=== PATIENT | female | born 1995 | race African-American/Black ===

== ENCOUNTER 2016-11-13 10:22 | Emergency (ER) | payer MEDICAID, OTHER ==
[~2016-11-13] VITALS: Ht 165.1 cm; Wt 100.0 kg
[2016-11-13 10:24] VITALS: BP 119/59; PULSE 79; RESP 14; TEMP 98.1; O2SAT 97
[2016-11-13 12:23] LABS: BACTERIA, URINE FEW /hpf; BLOOD, URINE NEG (NEG); COMMENT (UR) CULTURE INDICATED; CULTURE IF INDICATED CULTURE INDICATED; GLUCOSE,URINE NEG (NEG); KETONE, URINE NEG (NEG); MUCUS URINE FEW /lpf (OCC); NITRITE,URINE NEG (NEG); PH, URINE 6.5 (5.0-8.5); SQUAMOUS EPITHELIAL CELL URINE 3 /hpf (0-5); URINE COLOR YELLOW (YELLW/STRAW)
--- NOTE | 2016-11-13 13:41 | PD ---
HPI Chief Complaint: Complaint Time Seen by Provider: 13:39 Travel History International Travel<30 days: No Contact w/Intl Traveler<30days: No Traveled to known affect area: No History of Present Illness HPI 21-year-old female presents to the emergency Department with 2 complaints. First complaint is vaginal discharge that is yellowish in color and with a foul odor for a couple months. Denies vaginal pain, itching, irritation. Denies being exposed to STD eyes are STDs. Reports using a condom every time with sexual intercourse. Denies oral contraception. Last menstrual period ended October 23. Denies risk of . Second complaint is urinary frequency, urgency, hesitancy for the last week. Denies hematuria or dysuria. Denies pelvic pain, abdominal pain, nausea, vomiting. Denies fever, chills. Has not taken any medications or tried any treatments to alleviate symptoms. No known relieving or aggravating factors. Does not have a primary care provider. No known allergies. Denies significant past medical history. No other modifying factors or associated signs and symptoms. PFSH Past Medical History Medical History: Denies Significant Hx ?: Not Social History Tobacco Use: No Allergies-Medications (Allergen,Severity, Reaction): Coded Allergies: No Known Allergies (Unverified , 11/13/16) Reported Meds & Prescriptions Reported Meds & Active Scripts Active Keflex (Cephalexin) 500 Mg Cap 500 Mg PO Q12H 7 Days Review of Systems Except as stated in HPI: all other systems reviewed are Neg Physical Exam Narrative GENERAL: Well-nourished, well-developed female patient, in no acute distress; afebrile, nontoxic-appearing SKIN: Warm and dry. HEAD: Atraumatic. Normocephalic. EYES: Pupils equal and round. No scleral icterus. No injection or drainage. ENT: Mucous membranes pink and moist. NECK: Trachea midline. No lymphadenopathy. CARDIOVASCULAR: Regular rate and rhythm. No murmur appreciated. RESPIRATORY: No accessory muscle use. Clear to auscultation. Breath sounds equal bilaterally. GASTROINTESTINAL: Abdomen soft, non-tender, nondistended. Bilateral pelvic region nontender to palpation. Hepatic and splenic margins not palpable. No guarding, rigidity, rebound tenderness. PELVIC: Speculum exam reveals edematous and erythematous cervix with thick, light green , mucopurulent, foul-smelling discharge. Bimanual exam reveals no palpable masses or adnexa tenderness, no uterine tenderness. Negative cervical motion tenderness. MUSCULOSKELETAL: No obvious deformities. No clubbing. No cyanosis. No edema. NEUROLOGICAL: Awake and alert. No obvious cranial nerve deficits. Motor grossly within normal limits. Normal speech. PSYCHIATRIC: Appropriate mood and affect; insight and judgment normal. BACK: No CVA tenderness. Data Data Last Documented VS Vital Signs Date Time Temp Pulse Resp B/P Pulse Ox O2 Delivery O2 Flow Rate FiO2 11/13/16 10:24 98.1 79 14 119/59 97 Room Air Orders Urinalysis - C+S If Indicated (11/13/16 11:06) Ed Urine Pregnancytest Poc (11/13/16 11:06) Urine Culture (11/13/16 11:16) Gc And Chlamydia Pcr (11/13/16 14:49) Wet Prep Profile (11/13/16 14:49) Ceftriaxone Inj (Rocephin Inj) (11/13/16 15:00) Lidocaine 1% Inj (50 Ml) (Xylocaine 1% I (11/13/16 15:00) Ceftriaxone Inj (Rocephin Inj) (11/13/16 15:00) Azithromycin Powd Pack (Zithromax Powd P (11/13/16 15:15) Labs Laboratory Tests Test 11/13/16 11/13/16 11:16 14:45 Urine Color YELLOW Urine Turbidity HAZY Urine pH 6.5 Urine Specific [place] 1.023 Urine Protein 30 mg/dL Urine Glucose (UA) NEG mg/dL Urine Ketones NEG mg/dL Urine Occult Blood NEG Urine Nitrite NEG Urine Bilirubin NEG Urine Urobilinogen LESS THAN 2.0 MG/DL Urine Leukocyte Esterase LARGE Urine RBC 5 /hpf Urine WBC 119 /hpf Urine WBC Clumps RARE Urine Squamous Epithelial 3 /hpf Cells Urine Bacteria FEW /hpf Urine Mucus FEW /lpf Microscopic Urinalysis Comment CULTURE INDICATED Clue Cells (Wet Prep) NONE SEEN Vaginal Trichomonas (Wet Prep) NONE SEEN Vaginal Yeast (Wet Prep) NONE SEEN MDM Medical Decision Making Medical Screen Exam Complete: Yes Emergency Medical Condition: Yes Medical Record Reviewed: Yes Differential Diagnosis Chlamydia, gonorrhea, urinary tract infection, bacterial vaginosis, vaginal yeast Narrative Course 21-year-old female with vaginal and urinary complaint. Denies fever, chills, nausea, vomiting. Afebrile and nontoxic-appearing in the ER. Denies abdominal or pelvic pain. Urine negative. Urinalysis, wet prep, chlamydia, gonorrhea ordered. 1340: Urinalysis with signs of infection. 1535: Negative for Trichomonas, vaginal yeast, clue cells. Chlamydia and gonorrhea pending. Patient empirically treated with azithromycin and Rocephin for suspected chlamydia and gonorrhea. Keflex prescribed for home for urinary tract infection. Instructed patient to follow up with gynecology. Patient is medically cleared and stable for discharge. Discussed reasons to return to the emergency department. Instructed patient to follow up with primary care provider. Patient agrees with treatment plan. The patients vital signs are stable and the patient is stable for outpatient follow-up and treatment. Patient discharged home, stable and in no acute distress. Diagnosis Primary Impression: UTI (urinary tract infection) Qualified Code: N39.0 - Urinary tract infection without hematuria, site unspecified Additional Impression: Cervicitis Referrals: Web Analytics Specialist Primary Care Physician Patient Instructions: Cervicitis (ED), Chlamydia (ED), General Instructions, Gonorrhea (ED), Sexually Transmitted Diseases (ED), Urinary Tract Infection in Women (ED) Departure Forms: Tests/Procedures, Work Release Enter return to work date: Nov 14, 2016 Additional Instructions: Take antibiotics as prescribed and complete full course Drink plenty of fluids Maintain good personal hygiene Follow-up with primary care provider Return to the emergency department immediately with worsening of symptoms Avoid sexual activity until you follow up with your primary care provider Use condoms every time you have sex Follow-up with primary care provider Follow-up with manager collection Return to the emergency department immediately with worsening of symptoms Med/Other Pt SpecificInfo: Prescription(s) given Scripts Cephalexin (Keflex)500 Mg [id number] Mg PO Q12H 7 Days Ref 0 Prov:Gilda Galo 11/13/16 Disposition: 01 DISCHARGE HOME Condition: Stable Gilda Galo Nov 13, 2016 13:41
[2016-11-13] MEDS ORDERED: CEPH-460 PO (13:58)
[2016-11-13] MEDS ORDERED: LIDOCAINE HCL 1% 50 ML VIAL IM ONE (15:00)
[2016-11-13] MEDS ORDERED: cefTRIAXone 250 MG VIAL IM ONE (15:00)
[2016-11-13] MEDS ORDERED: AZITHROMYCIN PWD FOR SUSP 1 GM PACKET PO ONE (15:15)
[2016-11-13 18:58] LABS: CHLAMYDIA PCR DETECTED (NOT DETECT); NEISSERIA PCR DETECTED (NOT DETECT)
== END 2016-11-13 16:13 | disposition home or self-care (01) ==
LOC: NEPB 10:22
DX: N39.0 Urinary tract infection, site not specified (principal); N72 Inflammatory disease of cervix uteri; B96.89 Other specified bacterial agents as the cause of diseases classified elsewhere
CPT/HCPCS: 81001; 84703; 87086; 87210; 87491; 87591; 96372; 99283; J0696

== ENCOUNTER 2016-11-26 10:43 | Emergency (ER) | payer MEDICAID, OTHER ==
[~2016-11-26] VITALS: Ht 165.1 cm; Wt 96.0 kg
[~2016-11-26 10:43] MED LIST: CEPH-460 PO
[2016-11-26 10:44] VITALS: BP 119/58; PULSE 74; RESP 16; TEMP 98.2; O2SAT 100
--- NOTE | 2016-11-26 11:44 | PD ---
HPI Chief Complaint: Injury Time Seen by Provider: 11:41 Travel History International Travel<30 days: No Contact w/Intl Traveler<30days: No Traveled to known affect area: No History of Present Illness HPI 21-year-old female presents to the emergency department for evaluation of right foot injury that occurred last night. Patient states that she was running down a flight of steps when she misstepped on the right foot and her right foot rotated laterally. States she did not actually fall down she just twisted her foot. States that she's had pain and swelling in the lateral aspect of the foot since this occurred. Pain is aggravated with weightbearing and movement of the foot. Alleviated with rest. She has not taken anything for symptoms so far. She did apply ice earlier. No other complaints. Denies , last menstrual. A week ago. PFSH Past Medical History Medical History: Denies Significant Hx ?: Not Social History Tobacco Use: No Allergies-Medications (Allergen,Severity, Reaction): Coded Allergies: No Known Allergies (Unverified , 11/26/16) Reported Meds & Prescriptions Reported Meds & Active Scripts Active Ibuprofen 800 Mg Tab 800 Mg PO Q8H PRN 10 Days Review of Systems Except as stated in HPI: all other systems reviewed are Neg Physical Exam Narrative GENERAL: Well-nourished and well-developed pleasant patient in no acute distress who is nontoxic appearing. SKIN: Warm and dry. HEAD: Normocephalic and atraumatic. EYES: No injection, drainage, or hyphema noted. PERRLA. EOMI. ENT: No nasal drainage noted. Oropharynx is clear. NECK: Supple and the trachea is midline. CARDIOVASCULAR: Regular rate and rhythm. RESPIRATORY: Breath sounds are equal bilaterally with no accessory muscle use, wheezing, rhonchi, or crackles. EXTREMITY: The right lateral foot is swollen and tender but the skin is intact and there is no ligamentous instability. There is no deformity. The foot and toes are warm and well-perfused. Sensation to pain and light touch is intact. NEUROLOGICAL: Awake, alert, and oriented. Normal speech and gait. Cranial nerves are grossly intact. Data Data Last Documented VS Vital Signs Date Time Temp Pulse Resp B/P Pulse Ox O2 Delivery O2 Flow Rate FiO2 11/26/16 10:44 98.2 74 16 119/58 100 Room Air Orders Foot, Complete ([id number]) (11/26/16 11:41) Ice/Cold Pack (11/26/16 11:41) Ibuprofen (Motrin) (11/26/16 11:45) Splint Or Brace Apply/Monitor (11/26/16 12:10) Crutches (11/26/16 12:10) MDM Medical Decision Making Medical Screen Exam Complete: Yes Emergency Medical Condition: Yes Differential Diagnosis Sprain versus fracture versus contusion Narrative Course 21-year-old female presents to the emergency department for evaluation of right foot injury. Patient is afebrile, vital signs are stable. Patient's right lower extremity is neurovascularly intact. X-ray imaging has been ordered and is pending. X-ray of right foot shows a nondisplaced fracture of the proximal fifth metatarsal. Patient is placed in a posterior short-leg splint and given crutches for ambulation. She is instructed to follow-up with a station chief as an outpatient. Discussed supportive care. Patient verbalizes understanding and agreement with treatment plan. Diagnosis Primary Impression: Fracture of fifth metatarsal bone of right foot Qualified Code: S92.354A - Closed nondisplaced fracture of fifth metatarsal bone of right foot, initial encounter Referrals: Bag Bundler Patient Instructions: Foot Fracture in Adults (ED), General Instructions Additional Instructions: Splint. Use crutches for ambulation. Elevate right foot. Apply ice for 20 minutes on, 20 minutes off. Take medication as prescribed with food and a full glass of water. Follow-up with a station chief in office. Return to the ED for any acute worsening of symptoms. Med/Other Pt SpecificInfo: Prescription(s) given Scripts Ibuprofen 800 Mg [id number] Mg PO Q8H PRN (PAIN SCALE 1 TO 10) 10 Days Ref 0 Prov:Mary Wheeler MD 11/26/16 Disposition: 01 DISCHARGE HOME Condition: Stable Gilda Mark Nov 26, 2016 11:44
[2016-11-26] MEDS ORDERED: IBUPROFEN 800 MG TAB PO ONE (11:45)
--- NOTE | 2016-11-26 11:56 | RADRPT ---
EXAM DATE/TIME: 11/26/2016 12:01 [facility] COMPARISON: No previous studies available for comparison. INDICATIONS : Right foot pain from fall yesterday. MEDICAL HISTORY : None. SURGICAL HISTORY : None. ENCOUNTER: Initial ACUITY: 2 days PAIN SCORE: 10/10 LOCATION: Right lateral foot. FINDINGS: Three view examination of the right foot demonstrates no soft tissue swelling, dislocation, and there is a non-distracted fracture at the base of the fifth metatarsal. The tarsal bones appear intact. The interphalangeal and metatarsophalangeal joints are intact. The calcaneus is intact. Bony land title examiner alization is normal. CONCLUSION: Non-distracted fracture base fifth metatarsal Carlos Bowman MD on November 26, 2016 at 11:54 Board Certified Radiologist. This report was verified electronically.
[2016-11-26] MEDS ORDERED: IBUP800T23 PO (12:12)
== END 2016-11-26 13:10 | disposition home or self-care (01) ==
LOC: NEPB 10:43
DX: S92.354A Nondisplaced fracture of fifth metatarsal bone, right foot, initial encounter for closed fracture (principal); X50.0XXA Overexertion from strenuous movement or load, initial encounter; Y93.02 Activity, running
CPT/HCPCS: 29515; 73630; 99283; E0113